=== PATIENT | female | born 1985 | race Asian ===

== ENCOUNTER 2018-03-31 10:27 | Day surgery (SDC) | payer OTHER ==
[2018-03-31] MEDS: CEFAZOLIN 2 GM/50 ML (PMX) 50 ML IVPB (06:00)
[2018-03-31] MEDS: SOD CHLORIDE 0.9% 1,000 ML IV (06:00)
[~2018-03-31 10:27] MED LIST: CEFAZOLIN 1 GM INJ; DEXAMETHASONE 4 MG/ML 1 ML INJ; LIDOCAINE 2% (SDV) 5 ML INJ; METOCLOPRAMIDE 10 MG INJ; PROPOFOL 200 MG INJ; ROPIVACAINE 0.5 % 30 ML VIAL
[2018-03-31] MEDS ORDERED: FENTAnyl 50 MCG/ML VIAL (12:59)
[2018-03-31] MEDS ORDERED: MIDAZOLAM 1 MG/ML 2 ML INJ (13:00)
[2018-03-31] MEDS ORDERED: SUCCINYLCHOLINE CHLORIDE 100 MG/5 ML SYG IV (13:00)
[2018-03-31] MEDS ORDERED: ROCURONIUM 50 MG INJ (13:00)
[2018-03-31] MEDS ORDERED: ONDANSETRON 4 MG INJ (13:01)
[2018-03-31] MEDS ORDERED: SUGAMMADEX SODIUM 200 MG/2 ML VIAL IV (13:02)
[2018-03-31] MEDS ORDERED: ROPIVACAINE 0.5 % 30 ML VIAL (13:05)
[2018-03-31] MEDS ORDERED: HYDROmorphONE 1 MG/5 ML IV SYRINGE IV ×2 (14:00)
[2018-03-31] MEDS ORDERED: IPRATROPIUM (NEB) 0.5 MG/2.5 ML AMP HHN (14:00)
[2018-03-31] MEDS ORDERED: FENTAnyl 50 MCG/ML VIAL IV ×2 (14:00)
[2018-03-31] MEDS ORDERED: DIPHENHYDRAMINE 50 MG INJ IV (14:00)
[2018-03-31] MEDS: BUPIVACAINE 0.25% (MPF) 30 ML INJ (14:23)
[2018-03-31] MEDS: MEPERIDINE 25 MG INJ IV (15:06)
[2018-03-31] MEDS: ONDANSETRON 4 MG INJ IV (15:06)
[2018-03-31] MEDS: HYDROmorphONE 1 MG/5 ML IV SYRINGE IV (15:31)
[2018-03-31] MEDS: HYDROCODONE/APAP (5/325) TAB PO (16:13)
== END 2018-03-31 17:50 | disposition home or self-care (01) ==
LOC: SDS 10:27
DX: K82.4 Cholesterolosis of gallbladder (principal)
CPT/HCPCS: 47562; 84703; 88304

== ENCOUNTER 2018-04-01 13:36 | Emergency (ER) | payer OTHER ==
[2018-04-01] MEDS: SOD CHLORIDE 0.9% 1,000 ML IV (14:12)
[2018-04-01] MEDS: morphine 4 MG/ML VIAL IV (14:12)
[2018-04-01] MEDS: ONDANSETRON 4 MG INJ IV (14:13)
[2018-04-01 14:14] LABS: ADD MAN DIFF? NO
[2018-04-01 14:18] LABS: BASOPHILS % 0.2 % (0.0-2.0); EOSINOPHILS # 0.1 10^3/ul (0.0-0.5); EOSINOPHILS % 0.6 % (0.0-7.0); HEMATOCRIT 38.2 % (37.0-47.0); HEMOGLOBIN 12.1 g/dl (12.0-16.0); LYMPHOCYTES % 20.1 % (15.0-51.0); MEAN CORPUSCULAR HEMOGLOBIN 29.4 pg (29.0-33.0); MEAN CORPUSCULAR HGB CONC 31.7 g/dl (32.0-37.0); MEAN CORPUSCULAR VOLUME 92.7 fl (82.0-101.0); MEAN PLATELET VOLUME 12.1 fl (7.4-10.4); MONOCYTES % 10.3 % (0.0-11.0); NEUTROPHIL # 6.7 10^3/ul (1.6-7.5); NEUTROPHILS % 68.7 % (39.0-77.0); PLATELET COUNT 200 10^3/UL (140-415); RED BLOOD COUNT 4.12 10^6/ul (4.20-5.40); RED CELL DISTRIBUTION WIDTH 13.3 % (11.5-14.5)
[2018-04-01 14:18] LABS: WHITE BLOOD COUNT 9.7 10^3/ul (4.8-10.8)
[2018-04-01 14:35] LABS: ALANINE AMINOTRANSFERASE 110 IU/L (13-69); ALBUMIN 4.1 g/dl (3.3-4.9); ALKALINE PHOSPHATASE 76 IU/L (42-121); ANION GAP 11 (8-16); ASPARTATE AMINO TRANSFERASE 101 IU/L (15-46); BILIRUBIN,INDIRECT 0.3 mg/dl (0-1.1); BILIRUBIN,TOTAL 0.3 mg/dl (0.2-1.3); BLOOD UREA NITROGEN 7 mg/dl (7-20); CALCIUM 9.1 mg/dl (8.4-10.2); CARBON DIOXIDE 26 mmol/L (21-31); CHLORIDE 108 mmol/L (97-110); CREATININE 0.47 mg/dl (0.44-1.00); GLUCOSE 91 mg/dl (70-220); LIPASE 74 U/L (23-300); POTASSIUM 3.8 mmol/L (3.5-5.1); SODIUM 141 mmol/L (135-144); TOTAL PROTEIN 7.5 g/dl (6.1-8.1)
[2018-04-01] MEDS: HYDROmorphONE 1 MG/ML SYG IV (16:02)
[2018-04-01] MEDS: HYDROmorphONE 2 MG/ML SYG IV (16:02)
[2018-04-01] MEDS: SOD CHLORIDE 0.9% 100 ML (18:28)
[2018-04-01] MEDS: IOHEXOL 300MG/ML 150 ML BTL (18:29)
== END 2018-04-01 19:52 | disposition home or self-care (01) ==
LOC: E/R 13:36
DX: G89.18 Other acute postprocedural pain (principal)
CPT/HCPCS: 36415; 74177; 80053; 83690; 84702; 85025; 96374; 96375; 99285-25